=== PATIENT | female | born 1975 | race African-American/Black ===

== ENCOUNTER 2018-10-06 08:17 | Day surgery (SDC) | payer OTHER ==
[2018-10-06 08:44] VITALS: BMI 28.3
[2018-10-06] MEDS ORDERED: ACETAMINOPHEN 325 MG TABLET (FP) PO PRN (10:45)
[2018-10-06] MEDS ORDERED: IBUPROFEN 400 MG TABLET (FP) PO PRN (10:45)
--- NOTE | 2018-10-06 10:45 | HP ---
History & Physical Update - History History: No Change - Physical Physical: No Change - Assessment Assessment: No Change - Plan Plan: No Change (No change in HP)
[2018-10-06] MEDS ORDERED: SEVOFLURANE 250 ML BTL ONE (10:56)
[2018-10-06] MEDS ORDERED: MIDAZOLAM HCL 2 MG/2 ML SINGLE DOSE VIAL ONE ×2 (11:08)
[2018-10-06] MEDS ORDERED: SUCCINYLCHOLINE CHLORIDE 200 MG/10 ML VIAL ONE (11:08)
[2018-10-06] MEDS ORDERED: PROPOFOL 20 ML ONE ×3 (11:09)
[2018-10-06] MEDS ORDERED: ePHEDrine SULFATE 50 MG/1 ML AMPULE ONE (11:48)
[2018-10-06] MEDS ORDERED: ONDANSETRON 4 MG/2 ML VIAL IVPUSH PRN (12:18)
[2018-10-06] MEDS ORDERED: PROMETHAZINE HCL 25 MG/1 ML VIAL IVPUSH PRN (12:18)
[2018-10-06] MEDS ORDERED: oxyCODONE HCL 5 MG TABLET PO PRN (12:18)
[2018-10-06] MEDS ORDERED: LACTATED RINGERS SOLUTION 1,000 ML IV SCH (12:30)
--- NOTE | 2018-10-06 12:30 | OP ---
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 Menorrhagia. dysmenorrhea Operation: Hysteroscopic myomectomy. Suction DC Post-Operative Diagnosis: Same as Pre-op Surgeon: Argentina Villa Anesthesia: General Specimens Removed: submucosal myoma Estimated Blood Loss (mls): 10 Operative Report Dictated: Yes
[2018-10-06 14:20] VITALS: TEMP 97.9
[2018-10-06 15:32] VITALS: BP 125/69; PULSE 90
--- NOTE | 2018-10-07 08:59 | OP ---
DATE OF OPERATION: 10/06/2018 SURGEON: Argentina Villa MD PREOPERATIVE DIAGNOSIS: Submucosal myoma. OPERATION: Hysteroscopic myomectomy, suction dilatation and curettage. POSTOPERATIVE DIAGNOSIS: Leiomyomatous uterus and submucosal myoma. ANESTHESIA: General. ANESTHESIOLOGIST: Ashwini Epperson MD FINDINGS: A large 2-3-cm submucosal myoma seen in the posterior wall of the uterus. PROCEDURE: Patient was taken to the operating room, placed in dorsal lithotomy position, prepped and draped in the usual sterile fashion. A time-out was performed in accordance with hospital regulations. A speculum was placed in the vagina. The anterior lip of the cervix was grasped with a single-tooth tenaculum. Cervix was then dilated to accommodate the operative hysteroscope. A 2-3-cm posterior myoma was seen. Cautery and cutting of the myoma was done. Polyp forceps was used to remove a number of the pieces of myoma, and then, suction dilatation and curettage was done. Reentry of the scope revealed a little bit more of submucosal myoma, and that was also removed followed by suction dilatation and curettage. After all submucosal myoma was removed and suction dilatation and curettage removed, all instruments were then removed. Patient tolerated the procedure well. Estimated blood loss 10 mL. ARGENTINA VILLA M.D. RODNEY/[id number]
--- NOTE | 2018-10-08 17:37 | PATH ---
Surgical Pathology Report Patient Name: SETH DE LEON Med. Rec. #: [id number] /Age/Gender: 1975 (Age: 43) / F Account: [id number] Location: [facility] SURGICAL Taken: 10/06/2018 Received: 10/06/2018 Reported: 10/08/2018 Physicians: Argentina Villa M.D. Specimen(s) Received SUBMUCOSAL MYOMA Clinical History Submucosal myoma Final Diagnosis SUBMUCOSAL MYOMA, HYSTEROSCOPIC MYOMECTOMY, DILATION AND CURETTAGE: <1G, FRAGMENTS OF FIBROMUSCULAR TISSUE CONSISTENT WITH SUBMUCOSAL LEIOMYOMA. SECRETORY ENDOMETRIUM AND BENIGN ECTOCERVICAL SQUAMOUS MUCOSA. Electronically Signed Lydia Zimmerman M.D. Gross Description Received in formalin, labeled, "submucosal myoma" is a 2.5 x 2 x 0.3 cm, < 1 gram, aggregate of light kruse Fibrous-appearing tissue admixed with blood clot. Entirely submitted in three cassettes. AE/10/07/2018 ebram/10/07/2018
== END 2018-10-06 15:32 | disposition home or self-care (01) ==
LOC: JASU-SURG 08:17
PROVIDERS: ATTEND Obstetrics & Gynecology
PROC: 0UB98ZZ Excision of Uterus, Via Natural or Artificial Opening Endoscopic (ICD-10-PCS; principal; 2018-10-06 10:00)
PROC: 0UDB8ZX Extraction of Endometrium, Via Natural or Artificial Opening Endoscopic, Diagnostic (ICD-10-PCS; 2018-10-06 10:00)
DX: D25.0 Submucous leiomyoma of uterus (principal); D25.9 Leiomyoma of uterus, unspecified
CPT/HCPCS: 36415; 84703; 86850; 86900; 86901; 88305-TC; 94760

== ENCOUNTER 2024-01-27 04:15 | Inpatient (IN) | payer OTHER ==
[2024-01-23 13:56] VITALS: BMI 28.7
[2024-01-27] MEDS ORDERED: PHENAZOPYRIDINE HCL 100 MG TABLET (FP) ONE (06:09)
[2024-01-27] MEDS ORDERED: GABAPENTIN 300 MG CAPSULE ONE (06:10)
[2024-01-27] MEDS ORDERED: ACETAMINOPHEN 500 MG TABLET (FP) ONE (06:24)
[2024-01-27] MEDS: PHENAZOPYRIDINE HCL 100 MG TABLET (FP) PO ONE (06:36)
[2024-01-27] MEDS: GABAPENTIN 300 MG CAPSULE PO ONE (06:36)
[2024-01-27] MEDS: ACETAMINOPHEN 500 MG TABLET (FP) PO ONE (06:37)
[2024-01-27] MEDS ORDERED: PROPOFOL 20 ML ONE (14:05)
[2024-01-27] MEDS ORDERED: MIDAZOLAM HCL 2 MG/2 ML SINGLE DOSE VIAL ONE (14:06)
[2024-01-27] MEDS ORDERED: LIDOCAINE HCL/PF 2% SDV 5ML VIAL ONE (14:06)
[2024-01-27] MEDS ORDERED: ROCURONIUM BROMIDE 50 MG/5 ML SYRINGE ONE (14:37)
[2024-01-27] MEDS: ceFAZolin SODIUM 1 GM VIAL IVPB ONE (14:40)
[2024-01-27] MEDS ORDERED: HYDROmorphone HCl 2 MG/ML VIAL ONE (16:12)
[2024-01-27] MEDS ORDERED: SUGAMMADEX SODIUM 200 MG/2 ML VIAL ONE (16:47)
[2024-01-27] MEDS ORDERED: ONDANSETRON 4 MG/2 ML VIAL IVPUSH PRN ×2 (17:05→17:32)
[2024-01-27] MEDS ORDERED: DOCUSATE SODIUM 100 MG CAPSULE (FP) PO PRN (17:05)
[2024-01-27] MEDS ORDERED: IBUPROFEN 800 MG/8 ML IJ IVPB PRN (17:05)
[2024-01-27] MEDS ORDERED: BISACODYL 5 MG TABLET.DR (FP) PO PRN (17:05)
[2024-01-27] MEDS: LACTATED RINGERS SOLUTION 1,000 ML IV SCH (17:36)
[2024-01-27] MEDS ORDERED: ceFAZolin SODIUM 1 GM VIAL ONE (18:38)
[2024-01-27] MEDS: CEFAZOLIN 1 GM in DEXTROSE 5%-WATER - 50 ML IVPB SCH (18:48)
[2024-01-27 19:17] LABS: HEMATOCRIT 34.1 % (32.4-45.2); HEMOGLOBIN 11.1 GM/dL (10.7-15.3); MCH 28.9 pg (25.7-33.7); MCHC 32.6 g/dl (32.0-36.0); MEAN CELL VOLUME 88.6 fl (80-96); MEAN PLT VOLUME 8.1 fl (7.5-11.1); PLATELET COUNT 270 10^3/uL (134-434); RBC 3.85 M/mm3 (3.60-5.2); RDW 14.3 % (11.6-15.6)
[2024-01-27 19:41] LABS: POTASSIUM 3.6 mmol/L (3.5-5.1)
[2024-01-27 19:42] LABS: CALCIUM 8.9 mg/dL (8.5-10.1)
[2024-01-27 19:43] LABS: BLOOD UREA NITROGEN 9.3 mg/dL (7-18)
[2024-01-27 19:46] LABS: CREATININE 0.9 mg/dL (0.55-1.3)
[2024-01-27] MEDS: SIMETHICONE 80 MG TAB.CHEW (FP) PO PRN (19:58)
[2024-01-27] MEDS: oxyCODONE HCL 5 MG TABLET PO PRN (19:58)
[2024-01-28] MEDS: oxyCODONE HCL 5 MG TABLET PO PRN (00:26)
[2024-01-28] MEDS: ACETAMINOPHEN 325 MG TABLET (FP) PO PRN (03:08)
[2024-01-28 07:30] LABS: HEMATOCRIT 32.8 % (32.4-45.2); HEMOGLOBIN 11.1 GM/dL (10.7-15.3); MCH 29.9 pg (25.7-33.7); MEAN CELL VOLUME 87.9 fl (80-96); MEAN PLT VOLUME 7.9 fl (7.5-11.1); PLATELET COUNT 257 10^3/uL (134-434); RBC 3.73 M/mm3 (3.60-5.2); RDW 14.2 % (11.6-15.6); WHITE BLOOD COUNT 14.3 K/mm3 (4.0-10.0)
[2024-01-28 07:58] LABS: POTASSIUM 3.7 mmol/L (3.5-5.1)
[2024-01-28 07:59] LABS: CALCIUM 8.9 mg/dL (8.5-10.1)
[2024-01-28 08:00] LABS: BLOOD UREA NITROGEN 10.7 mg/dL (7-18)
[2024-01-28 08:03] LABS: CREATININE 0.8 mg/dL (0.55-1.3)
[2024-01-28] MEDS: MULTIVITAMINS (DAILY MVI) TABLET (FP) PO SCH (10:53)
[2024-01-28] MEDS: FERROUS SO4 325 MG TABLET (FP) PO SCH (10:53)
[2024-01-28] MEDS: LOSARTAN POTASSIUM 50 MG TABLET PO SCH (10:53)
[2024-01-28] MEDS: amLODIPine BESYLATE 10 MG TABLET (FP) PO SCH (10:55)
[2024-01-28] MEDS: ENOXAPARIN NA (PORCINE) 40 MG/0.4 ML DISP.SYRIN SQ SCH (10:57)
[2024-01-28 13:20] VITALS: BP 129/83; PULSE 93; RESP 17; TEMP 98.6
== END 2024-01-28 14:30 | disposition home or self-care (01) | DRG 743 ==
LOC: J2C 04:15 → J3W 19:41
PROVIDERS: ADMIT Obstetrics & Gynecology; ATTEND Obstetrics & Gynecology
PROC: 0UB70ZZ Excision of Bilateral Fallopian Tubes, Open Approach (ICD-10-PCS; 2024-01-27)
PROC: 0UB20ZZ Excision of Bilateral Ovaries, Open Approach (ICD-10-PCS; 2024-01-27)
PROC: 0UT90ZZ Resection of Uterus, Open Approach (ICD-10-PCS; principal; 2024-01-27 14:00)
DX: D25.9 Leiomyoma of uterus, unspecified (principal); N92.0 Excessive and frequent menstruation with regular cycle; R10.2 Pelvic and perineal pain; N83.292 Other ovarian cyst, left side; N83.291 Other ovarian cyst, right side
CPT/HCPCS: 36415; 80048; 81025; 85027; 86850; 86900; 86901; 88305-TC; 88307-TC; 94760